=== PATIENT | female | born 1950 | race Caucasian/White ===

== ENCOUNTER 2017-03-03 04:09 | Inpatient (IN) ==
--- NOTE | 2017-03-03 04:17 | Emergency Department Note ---
Disposition Clinical Impression: Respiratory failure with hypercapnia Qualifiers: Chronicity: acute on chronic Qualified Code(s): J96.22 - Acute and chronic respiratory failure with hypercapnia Disposition: Admitted As Inpatient Condition: Serious Referrals: Gilles Niño MD [Primary Care Provider] - Forms: ED Satisfaction Letter Time of Disposition: 07:29 SOB HPI - General Chief Complaint: ED Shortness of Breath/Dyspnea Stated Complaint: Dyspnea with low SAO2 while on vent - History of Present Illness Patient presents to the emergency department from [facility] secondary to reported hypoxia. Patient is reportedly a vent dependent trach patient who is DNR CC. Patient was found to be hypoxic and subsequent sent to emergency department for evaluation. Patient opens her eyes to verbal stimuli but is not currently getting any reliable history. She does follow commands and appears to be moving all extremities without difficulty without obvious gross neurologic deficit. - Related Data Home Medications Medication Instructions Recorded Confirmed Glimepiride [Amaryl] 4 mg PO BID 06/04/15 03/03/17 Ipratropium/Albuterol Neb [Duoneb] 3 ml IH Q4HR PRN 06/04/15 03/03/17 Multivitamin [Flintstones] 1 each PO DAILY 06/04/15 03/03/17 Novolog Flex Pen Per Sliding Scale See Protocol SQ ACHS 06/04/15 03/03/17 Tricor 145mg Po Daily 145 mg PO DAILY 06/04/15 03/03/17 Acetaminophen [Tylenol] 650 mg PO Q4HR 07/20/15 03/03/17 Atorvastatin [Lipitor] 20 mg PO HS 07/20/15 03/03/17 Linagliptin [Tradjenta] 5 mg PO QAM 07/20/15 03/03/17 Brimonidine Tartrate [Alphagan P] 3 drp LEFT EYE TID 03/18/16 03/03/17 Budesonide Neb [Pulmicort Neb] 0.5 mg IH BIDR 03/18/16 03/03/17 Darbepoetin [Aranesp] 60 mcg SQ DAILY 03/18/16 03/03/17 Dorzolamide HCl/Timolol Maleat 10 ml LEFT EYE BID 03/18/16 03/03/17 [Cosopt Eye Drops] Furosemide [Lasix] 20 mg PO DAILY 03/18/16 03/03/17 Gabapentin [Neurontin] 300 mg PO BID 03/18/16 03/03/17 Omeprazole [PriLOSEC] 20 mg PO DAILY@0600 03/18/16 03/03/17 Allopurinol [Zyloprim 100 MG] 100 mg PO DAILY 03/03/17 03/03/17 Previous Rx's Medication Instructions Recorded Metoprolol [Lopressor] 25 mg PO BID #60 tablet 08/18/15 Insulin DETEMIR [Levemir] 60 unit SQ BID [id number] 03/21/16 Allergies Allergy/AdvReac Type Severity Reaction Status Date / Time No Known Allergies Allergy Verified 06/04/15 08:29 Limitations: ROS unobtainable due to patients medical condition (Patient is a vent dependent trach patient currently is not providing any me) Past Medical History - Past Medical History Medical history: Reports: coronary artery disease, diabetes, GERD, hypertension , osteoporosis Surgical history: Reports: other (Surgical history includes tracheostomy as well as AV fistula in the left upper extremity) Psychiatric history: Reports: no psych history HEALTHCARE INTERPRETER history: Reports: no HEALTHCARE INTERPRETER history - Social History Smoking Status: Former smoker Smokeless Tobacco Status: No Alcohol use: Reports: none Drug use: Reports: none Physical Exam - General Limitations: other (Patient will provide meaningful history.) General appearance: in no apparent distress (Calls commands and opens eyes to stimuli. Patient without evidence of acute respiratory distress.) - Head Head exam: atraumatic, normocephalic - Eye Eye exam: Present: PERRL. Absent: scleral icterus, conjunctival injection - ENT ENT exam: mucous membranes moist - Neck Neck exam: Absent: meningismus, lymphadenopathy - Chest Chest inspection: Present: symmetric chest wall rise - Respiratory Respiratory exam: Absent: normal lung sounds bilaterally (Patient has mild inspiratory expiratory wheezes in the bases), respiratory distress, accessory muscle use, prolonged expiratory phase - Cardiovascular Cardiovascular exam: Present: normal rhythm, tachycardia. Absent: systolic murmur - Abdominal Exam Abdominal exam: Present: soft, Non-Tender, normal bowel sounds. Absent: distention - Extremities Exam Extremities exam: Present: normal capillary refill, pedal edema (2+ pitting edema bilateral lower extremities without asymmetry.) - Neurological Exam Neurological exam: Present: other (Patient opens eyes to verbal stimuli is moving all extremities. There is no obvious gross neurologic deficit) - Skin Skin exam: Present: warm, dry, intact Course Vital Signs Respiratory Rate 14 03/03/17 04:10 O2 Sat by Pulse Oximetry 100 03/03/17 04:10 Temperature 99.1 F 03/03/17 04:14 Pulse Rate 108 03/03/17 06:17 Respiratory Rate 18 03/03/17 06:58 Blood Pressure 154/62 03/03/17 06:17 O2 Sat by Pulse Oximetry 90 03/03/17 06:58 Oxygen Delivery Oxygen Delivery Ventilator Shortness of Breath/Dyspnea - MDM Narrative Medical decision making narrative: Patient's ABG revealed hypercapnic respiratory failure. Patient was placed on the ventilator with settings of AC with a tidal volume of 450, rate of 16, PEEP 5 and FiO2 of 60%. Patient has become more alert and interactive and does answer questions by nodding or shaking her head. Patient does have a signed DNR CC form. I contacted her family A Mr. Quesada and his spouse: I advise them of her acute hypercapnic respiratory failure as well as her worsening chronic kidney disease and questionable pneumonia. I have advised that her symptoms could quickly deteriorate without further treatment and the patient could . The family understands that, they state that she is been dealing with this for greater than 5 years and they confirmed that the patient is a DNR CC and only wants comfort measures. Patient had repeat ABG obtained which shows minimal improvement in her acute hypercapnic respiratory failure. Tidal volume was increased to 500. I discussed the case with her treating physician who recommends admission to the hospital for vent management. Any further aggressive treatment will not be performed as per the family's wishes. - Lab Data Result diagrams: 03/03/17 04:37 03/03/17 04:37 Lab Results 03/03/17 03/03/17 03/03/17 Range/Units 04:28 04:37 04:37 WBC 14.4 H (4.3-11.1) K/mcL RBC 2.91 L (3.82-4.97) M/mcL Hgb 8.6 L (11.5-15.4) g/dL Hct 30.7 L (35.3-44.9) % MCV 105.5 H (83.0-100.0) fL MCH 29.6 (28.0-33.3) pg MCHC 28.0 L (31.6-35.5) g/dL RDW 14.6 H (11.5-14.5) % Plt Count 325 (140-400) K/mcL MPV 9.4 (9.4-12.4) fL Immature Gran % 0.4 (0-4) % Seg Neutrophils % 81.3 % Lymphocytes % 13.1 % Monocytes % 3.5 % Eosinophils % 1.4 % Basophils % 0.3 % Neutrophils # 11.7 H (1.6-8.9) K/mcL Lymphocytes # 1.9 (0.6-4.6) K/mcL Monocytes # 0.5 (0.0-1.3) K/mcL Eosinophils # 0.2 (0.0-0.6) K/mcL Basophils # 0.0 (0.0-0.2) K/mcL Platelet Estimate Normal (Normal) Hypochromasia Present A (Not Present) PT 11.8 (9.4-12.1) Seconds INR 1.1 APTT 39.5 H (26.0-36.0) Seconds ABG pH 7.20 L* (7.32-7.45) pH Units ABG pCO2 80 H* (35-45) mmHg ABG pO2 110 H (85-104) mmHg ABG HCO3 31.4 H (21-27) mEQ/L ABG Total CO2 33.9 H (20-26) mEq/L ABG O2 Saturation 97 (95-98) % ABG Base Excess 3.4 H (-2.0 to 3.0) mEq/L Respiration Rate 12 Blood Gas Modality VENT Inspired O2 100 % Tidal Volume 450 cc PEEP 5 cm H2O Sodium (136-145) mEq/L Potassium (3.5-4.5) mEq/L Chloride (98-109) mEq/L Carbon Dioxide (19-29) mEq/L BUN (7-20) mg/dL Creatinine (0.57-1.11) mg/dL Est GFR ( Amer) (> 60) Est GFR (Non-Af Amer) (> 60) BUN/Creatinine Ratio (6-26) Glucose (70-99) mg/dL Calculated Osmolality (280-300) Calcium (8.6-10.8) mg/dL Troponin I (0-0.03) ng/mL B-Natriuretic Peptide (0-100) pg/mL 03/03/17 03/03/17 03/03/17 Range/Units 04:37 04:37 04:37 WBC (4.3-11.1) K/mcL RBC (3.82-4.97) M/mcL Hgb (11.5-15.4) g/dL Hct (35.3-44.9) % MCV (83.0-100.0) fL MCH (28.0-33.3) pg MCHC (31.6-35.5) g/dL RDW (11.5-14.5) % Plt Count (140-400) K/mcL MPV (9.4-12.4) fL Immature Gran % (0-4) % Seg Neutrophils % % Lymphocytes % % Monocytes % % Eosinophils % % Basophils % % Neutrophils # (1.6-8.9) K/mcL Lymphocytes # (0.6-4.6) K/mcL Monocytes # (0.0-1.3) K/mcL Eosinophils # (0.0-0.6) K/mcL Basophils # (0.0-0.2) K/mcL Platelet Estimate (Normal) Hypochromasia (Not Present) PT (9.4-12.1) Seconds INR APTT (26.0-36.0) Seconds ABG pH (7.32-7.45) pH Units ABG pCO2 (35-45) mmHg ABG pO2 (85-104) mmHg ABG HCO3 (21-27) mEQ/L ABG Total CO2 (20-26) mEq/L ABG O2 Saturation (95-98) % ABG Base Excess (-2.0 to 3.0) mEq/L Respiration Rate Blood Gas Modality Inspired O2 % Tidal Volume cc PEEP cm H2O Sodium 146 H (136-145) mEq/L Potassium 4.8 H (3.5-4.5) mEq/L Chloride 108 (98-109) mEq/L Carbon Dioxide 27 (19-29) mEq/L BUN 37 H (7-20) mg/dL Creatinine 2.93 H (0.57-1.11) mg/dL Est GFR ( Amer) 19 L (> 60) Est GFR (Non-Af Amer) 16 L (> 60) BUN/Creatinine Ratio 13 (6-26) Glucose 84 (70-99) mg/dL Calculated Osmolality 310 H (280-300) Calcium 9.5 (8.6-10.8) mg/dL Troponin I 0.03 (0-0.03) ng/mL B-Natriuretic Peptide 371 H (0-100) pg/mL 03/03/17 Range/Units 06:43 WBC (4.3-11.1) K/mcL RBC (3.82-4.97) M/mcL Hgb (11.5-15.4) g/dL Hct (35.3-44.9) % MCV (83.0-100.0) fL MCH (28.0-33.3) pg MCHC (31.6-35.5) g/dL RDW (11.5-14.5) % Plt Count (140-400) K/mcL MPV (9.4-12.4) fL Immature Gran % (0-4) % Seg Neutrophils % % Lymphocytes % % Monocytes % % Eosinophils % % Basophils % % Neutrophils # (1.6-8.9) K/mcL Lymphocytes # (0.6-4.6) K/mcL Monocytes # (0.0-1.3) K/mcL Eosinophils # (0.0-0.6) K/mcL Basophils # (0.0-0.2) K/mcL Platelet Estimate (Normal) Hypochromasia (Not Present) PT (9.4-12.1) Seconds INR APTT (26.0-36.0) Seconds ABG pH 7.24 L (7.32-7.45) pH Units ABG pCO2 74 H* (35-45) mmHg ABG pO2 64 L (85-104) mmHg ABG HCO3 31.8 H (21-27) mEQ/L ABG Total CO2 34.0 H (20-26) mEq/L ABG O2 Saturation 87 L (95-98) % ABG Base Excess 4.4 H (-2.0 to 3.0) mEq/L Respiration Rate 16 Blood Gas Modality VENT Inspired O2 60 % Tidal Volume 450 cc PEEP 5 cm H2O Sodium (136-145) mEq/L Potassium (3.5-4.5) mEq/L Chloride (98-109) mEq/L Carbon Dioxide (19-29) mEq/L BUN (7-20) mg/dL Creatinine (0.57-1.11) mg/dL Est GFR ( Amer) (> 60) Est GFR (Non-Af Amer) (> 60) BUN/Creatinine Ratio (6-26) Glucose (70-99) mg/dL Calculated Osmolality (280-300) Calcium (8.6-10.8) mg/dL Troponin I (0-0.03) ng/mL B-Natriuretic Peptide (0-100) pg/mL ITS Impressions Chest X-Ray 03/03/17 04:15 IMPRESSION: Bibasilar atelectasis versus pneumonia. D/ / Tony Louis MD / Tony Louis MD Interpreting Provider: Tony Louis MD - Radiology Data Radiology results reviewed: Yes I reviewed the patient's radiology results. Critical Care Time Critical Care Time: Yes Total Critical Care Time: 35 Attestation: The high probability of a clinically significant, sudden or life threatening deterioration of the [respiratory] system(s) required my full and direct attention, intervention and personal management. The aggregate critical care time was [35] minutes. This time is in addition to time spent performing reported procedures but includes the following: [] Data Review and interpretation [] Patient assessment and monitoring of vital signs [] Documentation [] Medication orders and management
[2017-03-03 04:36] LABS: Blood Gas FiO2 100 %
[2017-03-03 04:37] LABS: ABG PCO2 80 mmHg (35-45); Blood Gas PEEP 5 cm H2O; Blood Gas Respiration Rate 12; Blood Gas VT 450 cc
[2017-03-03 04:38] LABS: ABG Base Excess 3.4 mEq/L (-2.0 to 3.0); ABG HCO3 31.4 mEQ/L (21-27); ABG PO2 110 mmHg (85-104); ABG TCO2 33.9 mEq/L (20-26)
[2017-03-03 04:39] LABS: ABG Oxygen Saturation 97 % (95-98)
[2017-03-03 04:44] LABS: Basophils % 0.3 %; Eosinophils # 0.2 K/mcL (0.0-0.6); Eosinophils % 1.4 %; Hematocrit 30.7 % (35.3-44.9); Hemoglobin 8.6 g/dL (11.5-15.4); Immature Granulocytes % 0.4 % (0-4); Lymphocytes # 1.9 K/mcL (0.6-4.6); Lymphocytes % 13.1 %; Mean Corpuscular Hemoglobin 29.6 pg (28.0-33.3); Mean Corpuscular Volume 105.5 fL (83.0-100.0); Mean Platelet Volume 9.4 fL (9.4-12.4); Monocytes # 0.5 K/mcL (0.0-1.3); Monocytes % 3.5 %; Neutrophils # 11.7 K/mcL (1.6-8.9); Platelet Count 325 K/mcL (140-400); Red Blood Count 2.91 M/mcL (3.82-4.97); Red Cell Distribution Width 14.6 % (11.5-14.5); Segmented Neutrophils % 81.3 %
[2017-03-03 04:50] LABS: INR 1.1; Prothrombin Time 11.8 Seconds (9.4-12.1)
[2017-03-03 04:53] LABS: Activated Partial Thrombo Time 39.5 Seconds (26.0-36.0)
[2017-03-03 04:58] LABS: Hypochromasia Present (Not Present); Platelet Estimate Normal (Normal)
[2017-03-03 05:00] LABS: Calcium 9.5 mg/dL (8.6-10.8); Potassium 4.8 mEq/L (3.5-4.5)
[2017-03-03 06:53] LABS: ABG PH 7.24 pH Units (7.32-7.45); Blood Gas FiO2 60 %; Blood Gas PEEP 5 cm H2O; Blood Gas Respiration Rate 16; Blood Gas VT 450 cc
[2017-03-03 06:54] LABS: ABG Base Excess 4.4 mEq/L (-2.0 to 3.0); ABG HCO3 31.8 mEQ/L (21-27); ABG Oxygen Saturation 87 % (95-98); ABG PCO2 74 mmHg (35-45); ABG PO2 64 mmHg (85-104)
[2017-03-03] MEDS ORDERED: Levofloxacin 500 MG/100 ML 500 MG/100 ML BAG IVPB ONE (07:14)
[2017-03-03] MEDS ORDERED: Naloxone 0.4 MG/ML INJ IVP PRN (07:22)
[2017-03-03] MEDS ORDERED: Loratadine 10 MG TABLET PO PRN (10:18)
[2017-03-03] MEDS ORDERED: Ipratropium/Albuterol Neb 3 ML IH PRN (10:20)
[2017-03-03] MEDS ORDERED: *HR* Dextrose 50 % in Water (Syg) 50 ML SYRINGE IVP PRN (10:23)
[2017-03-03] MEDS ORDERED: Dextrose Gel 15 GM PO PRN ×2 (10:23)
[2017-03-03] MEDS ORDERED: D5% in Water 1,000 ML IVC PRN (10:23)
[2017-03-03 10:37] LABS: ABG PH 7.34 pH Units (7.32-7.45)
[2017-03-03 10:38] LABS: ABG Base Excess 4.8 mEq/L (-2.0 to 3.0); ABG HCO3 30.5 mEQ/L (21-27); ABG Oxygen Saturation 96 % (95-98); ABG PCO2 57 mmHg (35-45); ABG PO2 91 mmHg (85-104); ABG TCO2 32.3 mEq/L (20-26)
[2017-03-03 10:39] LABS: Blood Gas FiO2 80 %; Blood Gas Liter Flow 40 L/MIN; Blood Gas PEEP 5 cm H2O; Blood Gas Respiration Rate 16; Blood Gas VT 500 cc
[2017-03-03] MEDS ORDERED: Furosemide 20 MG/2 ML VIAL IVP SCH (10:45)
[2017-03-03] MEDS ORDERED: Insulin LISPRO 300 UNITS/3 ML VIAL SQ SCH ×2 (11:30→21:00)
[2017-03-03] MEDS: *HR* Glimepiride 2 MG TABLET PO SCH ×2 (11:50→16:51)
[2017-03-03] MEDS: Budesonide Neb 0.5 MG/2 ML IH SCH ×2 (13:01→21:45)
--- NOTE | 2017-03-03 13:50 | Internal Med History&Physical ---
Date of Encounter: 03/03/17 Time of Encounter: 13:25 Assessment and Plan (1) Pneumonia Current visit: No Status: Acute She has been started on Levaquin through emergency room. I will order chest CT to further evaluate. Qualifiers: Pneumonia type: due to unspecified organism Laterality: bilateral Lung location: lower lobe of lung Qualified Code(s): J18.9 - Pneumonia, unspecified organism (2) DM type 2 (diabetes mellitus, type 2) Current visit: No Status: Chronic Continue Amaryl and do Accu-Cheks with SSI. 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 (4) Hypertension Current visit: No Status: Chronic Continue Lopressor and Lasix. Qualifiers: Hypertension type: essential hypertension Qualified Code(s): I10 - Essential (primary) hypertension Internal Medicine - H&P: HPI Chief complaint: Hypoxemia Admitted From: Long-term Nursing Facility Plans for Post Hospital Care: Transfer [facility] History of present illness: Ms. Quesada is a 66 year old female who was sent to emergency room after residential staff reported her to have hypoxemia. She was evaluated in emergency room and found to have acute respiratory insufficiency on ABG. Bilateral atelectasis versus pneumonia was seen on chest x-ray. She had leukocytosis with left shift on WBC differential. She was admitted to [facility] floor for ongoing care needs. She was hospitalized last at [facility] March 2016 with HCAP. She is a lifelong nonsmoker and does not have documented chronic lung disease other than chronic respiratory failure. She had tracheostomy placed mid 2011 and has been at [facility] on the ventilator unit since then. Attempts at ventilator weaning were unsuccessful 2-3 years ago and no further attempts have been made. Past Med Surg Social Fam HX - Past Medical History Medical history: coronary artery disease, diabetes, GERD, hypertension, osteoporosis Psychiatric history: no psych history - Past Surgical History Surgical History: other (Surgical history includes tracheostomy as well as AV fistula in the left upper extremity) - Social History Smoking Status: Former smoker Smokeless Tobacco Status: No Alcohol use: none Drug use: none - Family History Father Adopted: No Family Member Ethnicity: Non- Living Status: Hx Family Cardiac Disorders: Yes Hx Family Respiratory Disorders: Yes Hx Family Cancer: Yes Hx Family GI Disorders: No Hx Family Endocrine Disorder: Yes Hx Family Neuromuscular Disorders: No Hx Family Neurologic Disorders: No Hx Family HEENT Disorders: No Hx Family Autoimmune Disorders: No Internal Medicine - H&P: Meds Glimepiride [Amaryl] 4 mg PO BID 06/04/15 [History] Ipratropium/Albuterol Neb [Duoneb] 3 ml IH Q4HR PRN 06/04/15 [History] Multivitamin [Flintstones] 1 each PO DAILY 06/04/15 [History] Novolog Flex Pen Per Sliding Scale See Protocol SQ ACHS 06/04/15 [History] Tricor 145mg Po Daily 145 mg PO DAILY 06/04/15 [History] Acetaminophen [Tylenol] 650 mg PO Q4HR 07/20/15 [History] Atorvastatin [Lipitor] 20 mg PO HS 07/20/15 [History] Linagliptin [Tradjenta] 5 mg PO QAM 07/20/15 [History] Metoprolol [Lopressor] 25 mg PO BID #60 tablet 08/18/15 [Rx] Brimonidine Tartrate [Alphagan P] 3 drp LEFT EYE TID 03/18/16 [History] Budesonide Neb [Pulmicort Neb] 0.5 mg IH BIDR 03/18/16 [History] Darbepoetin [Aranesp] 60 mcg SQ DAILY 03/18/16 [History] Dorzolamide HCl/Timolol Maleat [Cosopt Eye Drops] 10 ml LEFT EYE BID 03/18/16 [ History] Furosemide [Lasix] 20 mg PO DAILY 03/18/16 [History] Gabapentin [Neurontin] 300 mg PO BID 03/18/16 [History] Omeprazole [PriLOSEC] 20 mg PO DAILY@0600 03/18/16 [History] Insulin DETEMIR [Levemir] 60 unit SQ BID [id number] 03/21/16 [Rx] Allopurinol [Zyloprim 100 MG] 100 mg PO DAILY 03/03/17 [History] Allergies No Known Allergies Allergy (Verified 06/04/15 08:29) All Systems PM: A 10-system review of systems was performed and is negative for pertinent findings except as documented above in the HPI. Review of systems: Review of systems from the March 2016 hospitalization were reviewed and revised as below. Gen.: Her weight has increased from 142 pounds in March 2012 to present weight of approximately 200 pounds at present. This is unchanged from March 2016. Cardiovascular: She has history of hypertension but no known WI heart failure angina DVT or pulmonary embolus. An echocardiogram done 08/17/2015 showed LVEF of 60% with mild LV diastolic dysfunction. The E/A ratio was 1.1. No significant valvular abnormalities were seen. Respiratory: As per history of present illness GI: She has not had disorders of her liver gallbladder or exocrine pancreas. She had a colonoscopy approximately 2002 which was negative. She had remote gastrostomy tube which has been removed. : No history of hematuria dysuria or kidney stones. She has chronic kidney disease stage IV and follows with a nephrology practice in [place]. Neurologic: No history of large distribution strokes or seizures. Endocrine: She was diagnosed with DM 2 approximately 1998. Her most recent hemoglobin A1c was 6.1% on 02/07/2017. She has hyperlipidemia but no known thyroid disease. Hematology/oncology: She has anemia with workup done January 2017 and October 2015 showing no factor deficiency. It is likely due primarily to chronic kidney disease. She does not have known internal malignancies. 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 She is presumed cancer free. Psychiatric: She has no significant anxiety depression or other mental health issues Musk skeletal: She has DJD no known gout or osteoporosis. - Constitutional Vitals: Temp Pulse Resp BP Pulse Ox 99.7 F H 79 17 90/46 99 03/03/17 10:51 03/03/17 10:51 03/03/17 13:24 03/03/17 10:51 03/03/17 13:24 Exam: Gen.: She is a well-developed obese female lying in bed who appears in no acute distress. She denies pain or dyspnea HEENT: Head is atraumatic and normocephalic. Eyes: EOMI. There is no scleral icterus. Left pupil appears dilated. She reports no sight in the eye on the left side. Mouth: Mucosa is moist Neck: Supple and nontender. There is no thyromegaly or adenopathy noted. Tracheostomy is in place in the base of the neck anteriorly with ventilator attachment Heart: Regular without murmurs gallops or ectopics. Lungs: No wheezes or crackles are heard. Abdomen: She has a large abdomen. There is a large umbilical hernia which is reducible. There is mild tenderness to palpation of the abdomen without masses or guarding noted. Extremities: There is 0 - trace edema of the dorsum of the feet bilaterally. Dorsalis pedis and posterior tibial pulses are trace palpable. Neurologic: Mental status: She is awake and nods to answer a few questions. Cranial nerves: Smile is symmetric. Forehead wrinkles bilaterally. Tongue protrudes midline. EOMI. Motor: There is no pronator drift. Cerebellar: Finger to nose is intact bilaterally. Skin: Warm and dry Internal Med - H&P Results - Labs CBC & Chem 7: 03/03/17 04:37 03/03/17 04:37 - ABG Interpretation ABG results: 03/03/17 09:54 ABG pH 7.34 ABG pCO2 57 H ABG pO2 91 ABG HCO3 30.5 H ABG Total CO2 32.3 H ABG O2 Saturation 96 ABG Base Excess 4.8 H
[2017-03-03] MEDS: Dorzolamide/Timolol OPTH 10 ML BOTTLE LEFT EYE SCH ×3 (14:24→20:19)
[2017-03-03] MEDS: Gabapentin 300 MG CAPSULE PO SCH ×2 (14:24→20:16)
[2017-03-03] MEDS: Ascorbic Acid 500 MG TABLET PO SCH (14:24)
[2017-03-03] MEDS: Fenofibrate 54 MG TABLET PO SCH (14:24)
[2017-03-03] MEDS: Cholecalciferol (D-3) 1,000 UNIT TABLET PO SCH (14:25)
[2017-03-03] MEDS ORDERED: Levofloxacin 500 MG/100 ML 500 MG/100 ML BAG IVPB SCH (15:00)
[2017-03-03] MEDS: Multivit/Ca/Min/Fe/FA 1 TAB TABLET PO SCH (16:51)
[2017-03-03] MEDS: Insulin LISPRO 300 UNITS/3 ML VIAL SQ SCH ×2 (16:51→20:17)
--- NOTE | 2017-03-03 17:48 | Electrocardiograph Report ---
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
[2017-03-03] MEDS ORDERED: Insulin DETEMIR 100 UNIT/ML X5UNITS SQ SCH (21:00)
[2017-03-04] MEDS ORDERED: *HR* Enoxaparin 40 MG/0.4 ML SYRINGE SQ SCH (06:00)
[2017-03-04 07:47] LABS: Basophils % 0.1 %; Eosinophils # 0.2 K/mcL (0.0-0.6); Eosinophils % 1.4 %; Hematocrit 23.1 % (35.3-44.9); Immature Granulocytes % 0.3 % (0-4); Lymphocytes # 3.3 K/mcL (0.6-4.6); Lymphocytes % 22.5 %; Mean Corpuscular HGB Conc 28.6 g/dL (31.6-35.5); Mean Corpuscular Hemoglobin 29.6 pg (28.0-33.3); Mean Corpuscular Volume 103.6 fL (83.0-100.0); Monocytes # 0.6 K/mcL (0.0-1.3); Monocytes % 4.4 %; Neutrophils # 10.4 K/mcL (1.6-8.9); Platelet Count 253 K/mcL (140-400); Red Blood Count 2.23 M/mcL (3.82-4.97); Red Cell Distribution Width 15.1 % (11.5-14.5); Segmented Neutrophils % 71.3 %
[2017-03-04 07:49] LABS: Hemoglobin 6.6 g/dL (11.5-15.4)
[2017-03-04] MEDS: *HR* Glimepiride 2 MG TABLET PO SCH ×2 (08:47→16:53)
[2017-03-04] MEDS: Insulin LISPRO 300 UNITS/3 ML VIAL SQ SCH ×4 (08:47→22:19)
[2017-03-04 08:59] LABS: Albumin 2.3 g/dL (3.5-5.0); Albumin/Globulin Ratio 0.5 (1.1-2.2); Bilirubin,Total 0.3 mg/dL (0.2-1.2); Globulin 4.5 g/dL (2.4-3.5); Magnesium 1.6 mg/dL (1.6-2.6); Phosphorous 2.5 mg/dL (2.3-4.7); Potassium 5.2 mEq/L (3.5-4.5); Total Protein 6.8 g/dL (6.0-8.3)
[2017-03-04] MEDS: Ascorbic Acid 500 MG TABLET PO SCH (09:52)
[2017-03-04] MEDS: Furosemide 20 MG TABLET PO SCH (09:52)
[2017-03-04] MEDS: Gabapentin 300 MG CAPSULE PO SCH (09:52)
[2017-03-04] MEDS: Fenofibrate 54 MG TABLET PO SCH (09:52)
[2017-03-04] MEDS: Cholecalciferol (D-3) 1,000 UNIT TABLET PO SCH (09:52)
[2017-03-04] MEDS: TRADJENTA 5MG PO SCH (09:53)
[2017-03-04] MEDS: Multivit/Ca/Min/Fe/FA 1 TAB TABLET PO SCH (09:53)
[2017-03-04] MEDS: Dorzolamide/Timolol OPTH 10 ML BOTTLE LEFT EYE SCH ×3 (09:53→22:53)
[2017-03-04 09:54] LABS: ABG HCO3 29.5 mEQ/L (21-27); ABG PCO2 46 mmHg (35-45); ABG PH 7.41 pH Units (7.32-7.45); ABG PO2 96 mmHg (85-104)
[2017-03-04 09:55] LABS: ABG Base Excess 4.8 mEq/L (-2.0 to 3.0); ABG Oxygen Saturation 97 % (95-98); ABG TCO2 30.9 mEq/L (20-26); Blood Gas FiO2 40 %; Blood Gas PEEP 5 cm H2O; Blood Gas Respiration Rate 16; Blood Gas VT 500 cc
[2017-03-04] MEDS: Budesonide Neb 0.5 MG/2 ML IH SCH ×2 (10:44→21:57)
--- NOTE | 2017-03-04 15:20 | Internal Med Progress Note ---
Date of Encounter: 03/04/17 Time of Encounter: 15:10 - Assessment and plan (1) Pneumonia Current Visit: No Status: Acute Assessment and plan: WBC not improved. We will discontinue Levaquin and start Zosyn and doxycycline IV. Also start lactobacillus. Qualifiers: Pneumonia type: due to unspecified organism Laterality: bilateral Lung location: lower lobe of lung Qualified Code(s): J18.9 - Pneumonia, unspecified organism (2) DM type 2 (diabetes mellitus, type 2) Current Visit: No Status: Chronic Assessment and plan: March 04. Hemoglobin A1c was 6.1% on 02/07/2017. Continue Amaryl and Accu-Cheks with SSI. Levemir will continue to be held since blood sugars are generally acceptable. Qualifiers: Diabetes mellitus complication status: with kidney complications Diabetes mellitus complication detail: with chronic kidney disease Diabetes mellitus terminal gauger insulin use: with terminal gauger use Chronic kidney disease stage: stage 4 (severe) Qualified Code(s): E11.22 - Type 2 diabetes mellitus with diabetic chronic kidney disease; N18.4 - Chronic kidney disease, stage 4 (severe); Z79.4 - shelter (current) use of insulin (3) CKD (chronic kidney disease) stage 4, GFR 15-29 ml/min Current Visit: No Status: Chronic Assessment and plan: March 04. Creatinine has risen to 3.6. Estimated GFR decreased to 13. Continue to monitor renal indices. (4) Hypertension Current Visit: No Status: Chronic Assessment and plan: March 04. Continue Lopressor and Lasix Qualifiers: Hypertension type: essential hypertension Qualified Code(s): I10 - Essential (primary) hypertension (5) Anemia Current Visit: No Status: Chronic Assessment and plan: March 04. Acute on chronic. We will transfuse 1 unit RBCs today. Qualifiers: Other causes of anemia: chronic disease, kidney Qualified Code(s): N18.9 - Chronic kidney disease, unspecified - Subjective Interval history: March 04. She has no new complaints. She states she does not feel well overall. - Constitutional Vitals: Temp Pulse Resp BP Pulse Ox 99.1 F 80 18 167/66 93 03/04/17 15:07 03/04/17 15:07 03/04/17 15:07 03/04/17 15:07 03/04/17 15:07 Exam: She is lying in bed and appears in no acute distress. Her heart is regular without murmurs gallops or ectopics. Lungs show no expiratory wheezes or crackles in the anterior friedman. Extremities show no pitting edema. I reviewed her medications, lab results, and Accu-Cheks. Reviewed her chest CT report. Internal Medicine: Result - Labs CBC & Chem 7: 03/04/17 05:46 03/04/17 05:46 Labs: Short CBC 03/04/17 Range/Units 05:46 WBC 14.6 H (4.3-11.1) K/mcL Hgb 6.6 L D (11.5-15.4) g/dL Hct 23.1 L (35.3-44.9) % Plt Count 253 (140-400) K/mcL Neutrophils # 10.4 H (1.6-8.9) K/mcL BMP 03/04/17 05:46 Sodium 143 Potassium 5.2 H Chloride 106 Carbon Dioxide 27 BUN 48 H D Creatinine 3.63 H Glucose 58 L Calcium 9.0 Liver Function 03/04/17 Range/Units 05:46 Total Bilirubin 0.3 (0.2-1.2) mg/dL AST 14 (5-34) Units/L ALT 14 (0-55) Units/L Alkaline Phosphatase 26 L (38-126) Units/L Albumin 2.3 L (3.5-5.0) g/dL - ABG Interpretation ABG results: ABG ABG pH 7.41 pH Units (7.32-7.45) 03/04/17 09:48 ABG pCO2 46 mmHg (35-45) H 03/04/17 09:48 ABG pO2 96 mmHg (85-104) 03/04/17 09:48 ABG O2 Saturation 97 % (95-98) 03/04/17 09:48 PT/INR, D-dimer PT 11.8 Seconds (9.4-12.1) 03/03/17 04:37 - Impressions Impressions Chest CT 03/03/17 14:04 IMPRESSION: 1. Bilateral lower lobe consolidation is concerning for pneumonia. Rarely, bronchoalveolar cell carcinoma can present as an area of consolidation but would be very unusual in both lower lobes. Clinical correlation and continued radiographic follow-up recommended. 2. Mediastinal lymphadenopathy is most likely reactive in nature given the above findings. Follow-up chest CT in 2-3 months is recommended to ensure stability/ resolution. 3. Incidental findings include cardiomegaly, tracheostomy and minor atherosclerotic vascular calcifications. D/ / Derrick Ortiz MD / Derrick Ortiz MD Interpreting Provider: Derrick Oritz MD Consult Discharge Plan - Plan Referrals: Gilles Niño MD [Primary Care Provider] - 1 week
[2017-03-04] MEDS: Piperacillin/Tazobactam 3.375 GM in D5% in Water (Mini-Bag+) 100 ML IVPB SCH (16:45)
[2017-03-04] MEDS: Acetaminophen 325 MG TABLET PO PRN ×2 (18:47→22:55)
[2017-03-04] MEDS: Doxycycline 100 MG in 0.9 % Sodium Chloride Mini Bag 100 ML IVPB SCH (20:03)
[2017-03-04] MEDS: Gabapentin 100 MG CAPSULE PO SCH (20:04)
[2017-03-04] MEDS: Lactobacillus 1 EACH CAP.SPRINK PO SCH (20:05)
[2017-03-05] MEDS: Piperacillin/Tazobactam 3.375 GM in D5% in Water (Mini-Bag+) 100 ML IVPB SCH ×2 (04:28→16:42)
[2017-03-05] MEDS: Doxycycline 100 MG in 0.9 % Sodium Chloride Mini Bag 100 ML IVPB SCH ×2 (06:13→20:39)
[2017-03-05] MEDS: *HR* Enoxaparin 30 MG/0.3 ML SYRINGE SQ SCH (06:13)
[2017-03-05 06:40] LABS: Basophils % 0.1 %; Eosinophils # 0.2 K/mcL (0.0-0.6); Eosinophils % 1.7 %; Hemoglobin 7.8 g/dL (11.5-15.4); Immature Granulocytes % 0.3 % (0-4); Lymphocytes # 3.8 K/mcL (0.6-4.6); Mean Corpuscular Hemoglobin 30.2 pg (28.0-33.3); Mean Corpuscular Volume 100.8 fL (83.0-100.0); Mean Platelet Volume 10.2 fL (9.4-12.4); Monocytes # 0.7 K/mcL (0.0-1.3); Monocytes % 5.1 %; Platelet Count 269 K/mcL (140-400); Red Blood Count 2.58 M/mcL (3.82-4.97); Red Cell Distribution Width 15.9 % (11.5-14.5); Segmented Neutrophils % 65.8 %
[2017-03-05 06:43] LABS: Neutrophils # 9.2 K/mcL (1.6-8.9)
[2017-03-05 06:55] LABS: Calcium 9.3 mg/dL (8.6-10.8); Potassium 4.8 mEq/L (3.5-4.5)
[2017-03-05] MEDS: Insulin LISPRO 300 UNITS/3 ML VIAL SQ SCH ×4 (08:04→20:28)
[2017-03-05] MEDS: *HR* Glimepiride 2 MG TABLET PO SCH ×2 (08:04→16:14)
[2017-03-05] MEDS: Acetaminophen 325 MG TABLET PO PRN (08:14)
[2017-03-05] MEDS: Gabapentin 100 MG CAPSULE PO SCH ×2 (08:16→20:19)
[2017-03-05] MEDS: Lactobacillus 1 EACH CAP.SPRINK PO SCH ×2 (08:16→20:19)
[2017-03-05] MEDS: Furosemide 20 MG TABLET PO SCH (08:16)
--- NOTE | 2017-03-05 10:10 | Internal Med Progress Note ---
Date of Encounter: 03/05/17 Time of Encounter: 10:00 - Assessment and plan (1) Pneumonia Current Visit: No Status: Acute Assessment and plan: March 04. WBC not improved. We will discontinue Levaquin and start Zosyn and doxycycline IV. Also start lactobacillus. March 05. WBC and differential slightly improved. Continue Zosyn, doxycycline, and lactobacillus. Qualifiers: Pneumonia type: due to unspecified organism Laterality: bilateral Lung location: lower lobe of lung Qualified Code(s): J18.9 - Pneumonia, unspecified organism (2) DM type 2 (diabetes mellitus, type 2) Current Visit: No Status: Chronic Assessment and plan: March 04. Hemoglobin A1c was 6.1% on 02/07/2017. Continue Amaryl and Accu-Cheks with SSI. Levemir will continue to be held since blood sugars are generally acceptable. March 05. Continue Amaryl and Accu-Cheks with SSI. Blood sugars are acceptable off Levemir Qualifiers: Diabetes mellitus complication status: with kidney complications Diabetes mellitus complication detail: with chronic kidney disease Diabetes mellitus fpc insulin use: with terminal operator use Chronic kidney disease stage: stage 4 (severe) Qualified Code(s): E11.22 - Type 2 diabetes mellitus with diabetic chronic kidney disease; N18.4 - Chronic kidney disease, stage 4 (severe); Z79.4 - intermediate (current) use of insulin (3) CKD (chronic kidney disease) stage 4, GFR 15-29 ml/min Current Visit: No Status: Chronic Assessment and plan: March 04. Creatinine has risen to 3.6. Estimated GFR decreased to 13. Continue to monitor renal indices. March 05. Creatinine minimally higher at 3.83. Will discontinue Lasix and continue to monitor renal indices. (4) Hypertension Current Visit: No Status: Chronic Assessment and plan: March 04. Continue Lopressor and Lasix March 05. Will discontinue Lasix. Continue Lopressor. Qualifiers: Hypertension type: essential hypertension Qualified Code(s): I10 - Essential (primary) hypertension (5) Anemia Current Visit: No Status: Chronic Assessment and plan: March 04. Acute on chronic. We will transfuse 1 unit RBCs today. March 05. Hemoglobin improved to 7.8. Continue to monitor CBC. Qualifiers: Other causes of anemia: chronic disease, kidney Qualified Code(s): N18.9 - Chronic kidney disease, unspecified - Subjective Interval history: March 04. She has no new complaints. She states she does not feel well overall. March 05. She has no new complaints and states she feels slightly better today. - Constitutional Vitals: Temp Pulse Resp BP Pulse Ox 99.3 F 79 16 132/72 94 03/05/17 07:19 03/05/17 07:19 03/05/17 07:19 03/05/17 07:19 03/05/17 07:19 Exam: She is resting comfortably in bed and appears in no acute distress. Her lungs show no wheezes or crackles. Heart tones are soft but appears to be regular. Extremities have no pitting edema. I reviewed her medications and lab results. Internal Medicine: Result - Labs CBC & Chem 7: 03/05/17 06:25 03/05/17 06:25 Labs: Short CBC 03/05/17 Range/Units 06:25 WBC 13.9 H (4.3-11.1) K/mcL Hgb 7.8 L (11.5-15.4) g/dL Hct 26.0 L (35.3-44.9) % Plt Count 269 (140-400) K/mcL Neutrophils # 9.2 H (1.6-8.9) K/mcL BMP 03/05/17 06:25 Sodium 144 Potassium 4.8 H Chloride 108 Carbon Dioxide 23 BUN 52 H Creatinine 3.83 H Glucose 70 Calcium 9.3 - ABG Interpretation ABG results: ABG ABG pH 7.41 pH Units (7.32-7.45) 03/04/17 09:48 ABG pCO2 46 mmHg (35-45) H 03/04/17 09:48 ABG pO2 96 mmHg (85-104) 03/04/17 09:48 ABG O2 Saturation 97 % (95-98) 03/04/17 09:48 PT/INR, D-dimer PT 11.8 Seconds (9.4-12.1) 03/03/17 04:37 Consult Discharge Plan - Plan Referrals: Gilles Niño MD [Primary Care Provider] - 1 week
[2017-03-05] MEDS: TRADJENTA 5MG PO SCH (10:30)
[2017-03-05] MEDS: Dorzolamide/Timolol OPTH 10 ML BOTTLE LEFT EYE SCH ×3 (10:39→20:21)
[2017-03-05] MEDS: Budesonide Neb 0.5 MG/2 ML IH SCH ×2 (11:24→20:58)
[2017-03-05] MEDS: Multivit/Ca/Min/Fe/FA 1 TAB TABLET PO SCH (11:24)
[2017-03-05] MEDS: Cholecalciferol (D-3) 1,000 UNIT TABLET PO SCH (11:24)
[2017-03-05] MEDS: Fenofibrate 54 MG TABLET PO SCH (11:24)
[2017-03-05] MEDS: Ascorbic Acid 500 MG TABLET PO SCH (12:26)
[2017-03-05] MEDS ORDERED: Piperacillin/Tazobactam 3.375 GM in D5% in Water (Mini-Bag+) 100 ML IVPB SCH (19:00)
[2017-03-05] MEDS: ALPRAZolam 0.5 MG TABLET PO PRN (20:19)
[2017-03-06] MEDS: Piperacillin/Tazobactam 3.375 GM in D5% in Water (Mini-Bag+) 100 ML IVPB SCH (05:28)
[2017-03-06] MEDS: *HR* Enoxaparin 30 MG/0.3 ML SYRINGE SQ SCH (05:37)
[2017-03-06 06:29] LABS: Basophils % 0.3 %; Eosinophils # 0.3 K/mcL (0.0-0.6); Eosinophils % 2.3 %; Hematocrit 25.9 % (35.3-44.9); Hemoglobin 7.7 g/dL (11.5-15.4); Immature Granulocytes % 0.5 % (0-4); Lymphocytes # 3.1 K/mcL (0.6-4.6); Lymphocytes % 26.4 %; Mean Corpuscular HGB Conc 29.7 g/dL (31.6-35.5); Mean Corpuscular Hemoglobin 29.6 pg (28.0-33.3); Mean Corpuscular Volume 99.6 fL (83.0-100.0); Mean Platelet Volume 10.4 fL (9.4-12.4); Monocytes # 0.6 K/mcL (0.0-1.3); Monocytes % 4.8 %; Platelet Count 282 K/mcL (140-400); Red Cell Distribution Width 15.5 % (11.5-14.5); Segmented Neutrophils % 65.7 %
[2017-03-06 06:31] LABS: Neutrophils # 7.8 K/mcL (1.6-8.9)
[2017-03-06 06:51] LABS: Calcium 9.1 mg/dL (8.6-10.8); Potassium 4.9 mEq/L (3.5-4.5)
[2017-03-06] MEDS: Dorzolamide/Timolol OPTH 10 ML BOTTLE LEFT EYE SCH (08:28)
[2017-03-06] MEDS: ALPRAZolam 0.5 MG TABLET PO PRN (08:31)
[2017-03-06] MEDS: Fenofibrate 54 MG TABLET PO SCH (08:31)
[2017-03-06] MEDS: Cholecalciferol (D-3) 1,000 UNIT TABLET PO SCH (08:31)
[2017-03-06] MEDS: Insulin LISPRO 300 UNITS/3 ML VIAL SQ SCH (08:32)
[2017-03-06] MEDS: *HR* Glimepiride 2 MG TABLET PO SCH (08:32)
[2017-03-06] MEDS: Acetaminophen 325 MG TABLET PO PRN (08:32)
[2017-03-06] MEDS: Multivit/Ca/Min/Fe/FA 1 TAB TABLET PO SCH (08:32)
[2017-03-06] MEDS: Gabapentin 100 MG CAPSULE PO SCH (08:32)
[2017-03-06] MEDS: Lactobacillus 1 EACH CAP.SPRINK PO SCH (08:33)
[2017-03-06] MEDS: TRADJENTA 5MG PO SCH (08:33)
[2017-03-06] MEDS: Doxycycline 100 MG in 0.9 % Sodium Chloride Mini Bag 100 ML IVPB SCH (09:45)
[2017-03-06] MEDS: Budesonide Neb 0.5 MG/2 ML IH SCH (10:27)
--- NOTE | 2017-03-06 10:53 | Discharge Summary ---
Date of Encounter: 03/06/17 Time of Encounter: 10:40 - Discharge Diagnosis (1) Pneumonia Priority: Primary Status: Acute Qualifiers: Pneumonia type: due to unspecified organism Laterality: bilateral Lung location: lower lobe of lung Qualified Code(s): J18.9 - Pneumonia, unspecified organism (2) DM type 2 (diabetes mellitus, type 2) Priority: Secondary Status: Chronic Qualifiers: Diabetes mellitus complication status: with kidney complications Diabetes mellitus complication detail: with chronic kidney disease Diabetes mellitus termite treater insulin use: with mcc use Chronic kidney disease stage: stage 4 (severe) Qualified Code(s): E11.22 - Type 2 diabetes mellitus with diabetic chronic kidney disease; N18.4 - Chronic kidney disease, stage 4 (severe); Z79.4 - skilled nursing (current) use of insulin (3) CKD (chronic kidney disease) stage 4, GFR 15-29 ml/min Priority: Secondary Status: Chronic (4) Hypertension Priority: Secondary Status: Chronic Qualifiers: Hypertension type: essential hypertension Qualified Code(s): I10 - Essential (primary) hypertension (5) Anemia Priority: Secondary Status: Chronic Qualifiers: Other causes of anemia: chronic disease, kidney Qualified Code(s): N18.9 - Chronic kidney disease, unspecified - Discharge Medications Prescriptions: Amoxicillin/Clavulanate [Augmentin] 875 mg PO BIDWM 3 Days Doxycycline 100 mg PO BID 3 Days Lactobacillus [Culturelle] 1 each PO BID 3 Days Home Medications: Glimepiride [Amaryl] 4 mg PO BID 06/04/15 [History] Ipratropium/Albuterol Neb [Duoneb] 3 ml IH Q4HR PRN 06/04/15 [History] Multivitamin [Flintstones] 1 each PO DAILY 06/04/15 [History] Novolog Flex Pen Per Sliding Scale See Protocol SQ ACHS 06/04/15 [History] Tricor 145mg Po Daily 145 mg PO DAILY 06/04/15 [History] Acetaminophen [Tylenol] 650 mg PO Q4HR 07/20/15 [History] Atorvastatin [Lipitor] 20 mg PO HS 07/20/15 [History] Linagliptin [Tradjenta] 5 mg PO QAM 07/20/15 [History] Metoprolol [Lopressor] 25 mg PO BID #60 tablet 11/03/15 [Rx] Brimonidine Tartrate [Alphagan P] 3 drp LEFT EYE TID 03/18/16 [History] Budesonide Neb [Pulmicort Neb] 0.5 mg IH BIDR 03/18/16 [History] Darbepoetin [Aranesp] 60 mcg SQ DAILY 03/18/16 [History] Dorzolamide HCl/Timolol Maleat [Cosopt Eye Drops] 10 ml LEFT EYE BID 03/18/16 [ History] Omeprazole [PriLOSEC] 20 mg PO DAILY@0600 03/18/16 [History] Allopurinol [Zyloprim 100 MG] 100 mg PO DAILY 03/03/17 [History] Amoxicillin/Clavulanate [Augmentin] 875 mg PO BIDWM 3 Days 03/06/17 [Rx] Doxycycline 100 mg PO BID 3 Days 03/06/17 [Rx] Furosemide [Lasix] 20 mg PO Q48H #0 03/06/17 [Rx] Gabapentin [Neurontin] 200 mg PO BID #0 03/06/17 [Rx] Lactobacillus [Culturelle] 1 each PO BID 3 Days 03/06/17 [Rx] Allergies/Adverse Reactions: Allergies No Known Allergies Allergy (Verified 06/04/15 08:29) Procedures/tests Complete & Pending: Procedures Performed prior 72 hours Category Date Time Status CT chest wo con [CT] Routine Cat Scan 03/03/17 14:04 Completed Date of admission: 03/03/17 14:02 Primary care physician: Gilles Niño MD Consults: 03/03/17 14:09 Consult to Structural Welder [CONS] Routine Reason for SW Consult: Discharge Planning - Patient Status Disposition: Transfer SNF Condition: Serious Functional capacity at discharge: bed bound Overall status at discharge: patient is progressing back to baseline - Discharge Instructions Follow Up With: Gilles Niño MD [Primary Care Provider] - 1 week - Diet and Activity Activity: resume usual activities as tolerated Diet: diabetic diet Hospital course: Ms. Quesdaa is a 66 year old female who was sent to emergency room after [facility] staff reported her to have hypoxemia. She was evaluated in emergency room and found to have acute respiratory insufficiency on ABG. Bilateral atelectasis versus pneumonia was seen on chest x-ray. She had leukocytosis with left shift on WBC differential. She was admitted to MedSurg floor for ongoing care needs. Initial orders were written by the emergency room physician. I saw her on March 03 and performed a history and physical. She was initially given IV Levaquin through emergency room. WBC was unimproved on March 04 and I changed her to IV Zosyn and doxycycline. Lactobacillus was given. Chest CT on 03/03/2017 showed bilateral lower lobe consolidation with mediastinal lymphadenopathy most likely reactive. Follow-up chest CT in 2-3 months was recommended. She had improvement in WBC with level of 11.8 on day of discharge and 65.7% segs. She will be discharged back [facility] and continue with oral Augmentin and doxycycline with lactobacillus for 3 additional days. Accu-Cheks show stability without the use of Levemir. She will continue with Amaryl at the prison but Levemir will be discontinued. - Time Spent with Patient Total time spent providing and/or coordinating discharge services: - Constitutional Vitals: Temp Pulse Resp BP Pulse Ox 99.0 F 62 16 135/72 99 03/06/17 07:18 03/06/17 07:18 03/06/17 10:30 03/06/17 07:18 03/06/17 10:30
[2017-03-06 11:00] VITALS: BP 142/75
--- NOTE | 2017-03-06 11:00 | Physician Discharge Referral ---
[facility]Care Referral Info Transfer To: [facility] Provider in Charge: [place] Provider in Charge after Transfer: PCP ([place]) - Diagnosis (1) Pneumonia Priority: Primary Status: Acute (2) DM type 2 (diabetes mellitus, type 2) Priority: Secondary Status: Chronic (3) CKD (chronic kidney disease) stage 4, GFR 15-29 ml/min Priority: Secondary Status: Chronic (4) Hypertension Priority: Secondary Status: Chronic (5) Anemia Priority: Secondary Status: Chronic Prognosis: Fair Aware of Diagnosis: Patient Aware of Prognosis: Patient - Transfer Medications Prescriptions: Amoxicillin/Clavulanate [Augmentin] 875 mg PO BIDWM 3 Days Doxycycline 100 mg PO BID 3 Days Lactobacillus [Culturelle] 1 each PO BID 3 Days Home Medications: Glimepiride [Amaryl] 4 mg PO BID 06/04/15 [History] Ipratropium/Albuterol Neb [Duoneb] 3 ml IH Q4HR PRN 06/04/15 [History] Multivitamin [Flintstones] 1 each PO DAILY 06/04/15 [History] Novolog Flex Pen Per Sliding Scale See Protocol SQ ACHS 06/04/15 [History] Tricor 145mg Po Daily 145 mg PO DAILY 06/04/15 [History] Acetaminophen [Tylenol] 650 mg PO Q4HR 07/20/15 [History] Atorvastatin [Lipitor] 20 mg PO HS 07/20/15 [History] Linagliptin [Tradjenta] 5 mg PO QAM 07/20/15 [History] Metoprolol [Lopressor] 25 mg PO BID #60 tablet 08/18/15 [Rx] Brimonidine Tartrate [Alphagan P] 3 drp LEFT EYE TID 03/18/16 [History] Budesonide Neb [Pulmicort Neb] 0.5 mg IH BIDR 03/18/16 [History] Darbepoetin [Aranesp] 60 mcg SQ DAILY 03/18/16 [History] Dorzolamide HCl/Timolol Maleat [Cosopt Eye Drops] 10 ml LEFT EYE BID 03/18/16 [ History] Omeprazole [PriLOSEC] 20 mg PO DAILY@0600 03/18/16 [History] Allopurinol [Zyloprim 100 MG] 100 mg PO DAILY 03/03/17 [History] Amoxicillin/Clavulanate [Augmentin] 875 mg PO BIDWM 3 Days 03/06/17 [Rx] Doxycycline 100 mg PO BID 3 Days 03/06/17 [Rx] Furosemide [Lasix] 20 mg PO Q48H #0 03/06/17 [Rx] Gabapentin [Neurontin] 200 mg PO BID #0 03/06/17 [Rx] Lactobacillus [Culturelle] 1 each PO BID 3 Days 03/06/17 [Rx] Allergies/Adverse Reactions: Allergies No Known Allergies Allergy (Verified 06/04/15 08:29) - Respiratory Orders Other (Continue ventilator support with new settings as at Hospital) Smoking Cessation: Smoking cessation has been advised. For more information, call the [place] Tobacco Quit Line at 6-239-HUJH-NOW. - Mobility Orders Bedrest - Rehabiliation Orders Rehab Potential: Poor - Diet Orders No Concentrated Sweets CERTIFICATION: I certify that the transfer of the above named patient to an Extended Care Facility is necessary for the continuing treatment of the diagnosis listed. The above information is true and accurate reflection of patient's current condition. Confidential - Redisclosure prohibited without a patient's written consent.
== END 2017-03-06 14:55 | DRG 208 ==
LOC: INPPIK 04:09 → EMEROOPIK 04:09 → INPPIK 08:10
PROVIDERS: ADMIT Internal Medicine; ATTEND Internal Medicine